=== PATIENT | female | born 1975 ===

== ENCOUNTER 2018-01-11 00:56 | Emergency (ER) | payer OTHER ==
[2018-01-11] MEDS ORDERED: Sodium Chloride 0.9% 1000 ML 1,000 ML IV STA (01:22)
[2018-01-11] MEDS ORDERED: Zofran 4 MG/2 ML VIAL IV ONE (01:22)
[2018-01-11] MEDS ORDERED: MORPHINE SULFATE 4 MG INJ IV ONE (01:22)
[2018-01-11] MEDS ORDERED: MORPHINE SULFATE 4 MG INJ ONE (01:26)
[2018-01-11] MEDS ORDERED: Zofran 4 MG/2 ML VIAL ONE (01:26)
[2018-01-11] MEDS ORDERED: Sodium Chloride 0.9% 1000 ML 1,000 ML ONE (01:26)
--- NOTE | 2018-01-11 01:29 | ERPHSYRPT ---
- History of Present Illness Time Seen by Provider: 01/11/18 01:24 Historian: patient Exam Limitations: no limitations Patient Subjective Stated Complaint: pt states she started having abd pain tonight around 2100 and has been nauseated and vomiting Triage Nursing Assessment: pt alert and oriented, asnwers questions approp. pt ambulatory with steady gait noted. respriations nonlabored with lungs cta. skin pink warm and dry. abd soft, tenderness noted to epigastric area. bowel sounds present x4 Physician History: This is a 42-year-old white female who states that she has had problems with the epigastric and right upper quadrant abdominal pain off and on for a year. She arrives with complaint of pain in the epigastric region which began around 9 :00 this is associated with several episodes of vomiting. Patient states that she had eaten or acute chicken prior to onset of her symptoms. Patient states that she initially presented at [facility] emergency room however she apparently had a long wait so decided to leaving, to [place] emergency room. Patient has no fevers. Patient states that she has had the abdominal pain for up to a year off and on she states she hasn't had a CT which showed a gallstone in the past she had a subsequent CT that was negative and did not show any gallstones she had a subsequent hiatus scan 3 months ago which she states was normal. Past medical history patient denies. Past surgical history ORIF of right leg. Social history positive for tobacco occasional alcohol use, patient denies illicit drug use. Timing/Duration: today (99:00 this evening) Activities at Onset: none Quality: cramping Abdominal Pain Onset Location: RUQ, epigastric Pain Radiation: other (back) Severity of Pain-Max: moderate Modifying Factors: Improves With: analgesics (patient tells the nurse sthe patient tells the nurse she took 800 mg of motrin prior to presentation), exercise, vomiting. Worsens With: antacids, breathing, coughing, defecating, eating, lying down, movement, palpation, rest, urinating, position, walking Associated Symptoms: back (pain radiates to her back), nausea, vomiting, No chest pain, No diaphoresis, No diarrhea, No fever/chills, No fatigue, No headache, No heartburn, No loss of appetite, No neck pain, No rash, No shortness of breath, No syncope Previous symptoms: same symptoms as today (patient states symptoms off and on for 1 year) Allergies/Adverse Reactions: Sulfa (Sulfonamide Antibiotics) Allergy (Verified 01/11/18 01:22) Rash Hx Tetanus, Diphtheria Vaccination/Date Given: No Hx Influenza Vaccination/Date Given: No Hx Pneumococcal Vaccination/Date Given: No Immunizations Up to Date: No - Review of Systems Constitutional: No Fever, No Chills Eyes: No Symptoms Ears, Nose, & Throat: No Symptoms Respiratory: No Cough, No Dyspnea Cardiac: No Chest Pain, No Edema, No Syncope Abdominal/Gastrointestinal: Abdominal Pain, Nausea, Vomiting, No Diarrhea, No Constipation, No Hematemesis, No Hematochezia, No Melena, No Dysphagia, No Appetite Changes Genitourinary Symptoms: No Dysuria Musculoskeletal: No Back Pain, No Neck Pain Skin: No Rash Neurological: No Dizziness, No Focal Weakness, No Sensory Changes Psychological: No Symptoms Endocrine: No Symptoms All Other Systems: Reviewed and Negative - Past Medical History Pertinent Past Medical History: No - Past Surgical History Past Surgical History: Yes Musculoskeletal: Orthopedic Surgery Other Surgical History: rt tib fib fx - Social History Smoking Status: Current every day smoker How long have you smoked: 20 Exposure to second hand smoke: Yes Drug Use: none Patient Lives Alone: No - Female History Hx Last Menstrual Period: depo shot Hx Now: No - Nursing Vital Signs Nursing Vital Signs: Initial Vital Signs Temperature 98.8 F 01/11/18 01:05 Pulse Rate 103 H 01/11/18 01:05 Respiratory Rate 18 01/11/18 01:05 Blood Pressure 130/90 01/11/18 01:05 O2 Sat by Pulse Oximetry 99 01/11/18 01:05 Pain Scale Pain Intensity 6 - Physical Exam General Appearance: no apparent distress, alert, other (Well-developed well- nourished white female, alert, oriented 3 in no acute distress) Eye Exam: PERRL/EOMI, eyes nml inspection Ears, Nose, Throat Exam: normal ENT inspection, pharynx normal, moist mucous membranes Neck Exam: normal inspection, non-tender, supple, full range of motion Respiratory Exam: normal breath sounds, lungs clear, No respiratory distress Cardiovascular Exam: regular rate/rhythm, normal heart sounds Gastrointestinal/Abdomen Exam: soft, normal bowel sounds, tenderness (mild right upper quadrant and epigastric tenderness with palpation negative rebound, negative masses) Back Exam: normal inspection, normal range of motion, No CVA tenderness, No vertebral tenderness Extremity Exam: normal inspection, normal range of motion, pelvis stable Neurologic Exam: alert, oriented x 3, cooperative, door slinger II-XII nml as tested, normal mood/affect, nml cerebellar function, sensation nml, No motor deficits Skin Exam: normal color, warm, dry SpO2 Interpretation: normal (99%) SpO2: 99 Oxygen Delivery: Room Air - Course Nursing assessment & vital signs reviewed: Yes Ordered Tests: Active Orders 24 hr Category Date Time Status IV Insertion STAT Care 01/11/18 01:22 Active AMYLASE Stat Lab 01/11/18 01:20 Completed CBC W DIFF Stat Lab 01/11/18 01:20 Completed CMP Stat Lab 01/11/18 01:20 Completed HCG QUALITATIVE,SERUM Stat Lab 01/11/18 01:20 Completed LIPASE Stat Lab 01/11/18 01:20 Completed UA W/RFX UR CULTURE Stat Lab 01/11/18 01:05 Completed Urine Triage Profile Stat Lab 01/11/18 01:05 Completed Medication Summary Generic Name Dose Route Start Last Admin Trade Name Freq PRN Reason Stop Dose Admin Sodium Chloride 1,000 mls @ 999 mls/hr 01/11/18 01:22 01/11/18 01:31 Sodium Chloride 0.9% 1000 Ml IV 01/11/18 02:22 999 mls/hr .Q1H1M STA Administration Promethazine HCl 25 mg 01/11/18 02:06 Phenergan 25 Mg PO 01/11/18 02:07 STAT ONE Discontinued Medications Generic Name Dose Route Start Last Admin Trade Name Freq PRN Reason Stop Dose Admin Sodium Chloride Confirm 01/11/18 01:26 Sodium Chloride 0.9% 1000 Ml Administered 01/11/18 01:27 Dose 1,000 mls @ ud .ROUTE .STK-MED ONE Morphine Sulfate 4 mg 01/11/18 01:22 01/11/18 01:30 Morphine Sulfate 4 Mg Inj IV 01/11/18 01:23 4 mg STAT ONE Administration Morphine Sulfate Confirm 01/11/18 01:26 Morphine Sulfate 4 Mg Inj Administered 01/11/18 01:27 Dose 4 mg .ROUTE .STK-MED ONE Ondansetron HCl 4 mg 01/11/18 01:22 01/11/18 01:30 Zofran 4 Mg/2 Ml Vial IV 01/11/18 01:23 4 mg STAT ONE Administration Ondansetron HCl Confirm 01/11/18 01:26 Zofran 4 Mg/2 Ml Vial Administered 01/11/18 01:27 Dose 4 mg .ROUTE .STK-MED ONE Lab/Rad Data: Laboratory Result Diagrams 01/11/18 01:20 01/11/18 01:20 Laboratory Results 01/11/18 01/11/18 01/11/18 Range/Units 01:20 01:20 01:20 WBC 7.5 (4.0-10.5) K/mm3 RBC 4.60 (4.1-5.4) M/mm3 Hgb 15.0 (12.0-16.0) gm/dl Hct 43.0 (35-47) % MCV 93.5 (78-100) fl MCH 32.6 H (26-32) pg MCHC 34.9 (32-36) g/dl RDW 13.0 (11.5-14.0) % Plt Count 244 (150-450) K/mm3 MPV 9.6 H (6-9.5) fl Gran % 55.5 (36.0-66.0) % Eos # (Auto) 0.05 (0-0.5) Absolute Lymphs (auto) 2.74 (1.0-4.6) Absolute Monos (auto) 0.50 (0.0-1.3) Lymphocytes % 36.8 (24.0-44.0) % Monocytes % 6.7 (0.0-12.0) % Eosinophils % 0.7 (0.00-5.0) % Basophils % 0.3 (0.0-0.4) % Absolute Granulocytes 4.14 (1.4-6.9) Basophils # 0.02 (0-0.4) Sodium 148 H (137-145) mmol/L Potassium 4.1 (3.5-5.1) mmol/L Chloride 112 H (98-107) mmol/L Carbon Dioxide 22 (22-30) mmol/L Anion Gap 17.6 H (5-15) MEQ/L BUN 13 (7-17) mg/dL Creatinine 0.88 (0.52-1.04) mg/dL Estimated GFR > 60.0 ML/MIN Glucose 93 (74-106) mg/dL Calcium 9.5 (8.4-10.2) mg/dL Total Bilirubin 0.20 (0.2-1.3) mg/dL AST 46 H (14-36) U/L ALT 87 H (0-35) U/L Alkaline Phosphatase 69 (38-126) U/L Serum Total Protein 8.4 H (6.3-8.2) g/dL Albumin 4.7 (3.5-5.0) g/dL Amylase 54 (30-110) U/L Lipase 111 (23-300) U/L Serum , Qual NEGATIVE (Negative) Ur Collection Type Urine Color (YELLOW) Urine Appearance (CLEAR) Urine pH (5-6) Ur Specific [place] (1.005-1.025) Urine Protein (Negative) Urine Ketones (NEGATIVE) Urine Blood (0-5) Derrick/ul Urine Nitrite (NEGATIVE) Urine Bilirubin (NEGATIVE) Urine Urobilinogen (0-1) mg/dL Ur Leukocyte Esterase (NEGATIVE) Urine Culture Reflexed (NO) Urine Glucose (NEGATIVE) mg/dL Urine Opiates Level (NEGATIVE) Ur Methadone (NEGATIVE) Urine Barbiturates (NEGATIVE) Ur Phencyclidine (PCP) (NEGATIVE) Urine Amphetamine (NEGATIVE) U Benzodiazepine Level (NEGATIVE) Urine Cocaine (NEGATIVE) Urine Marijuana (THC) (NEGATIVE) Specimen Received 01/11/18 01/11/18 Range/Units 01:05 01:05 WBC (4.0-10.5) K/mm3 RBC (4.1-5.4) M/mm3 Hgb (12.0-16.0) gm/dl Hct (35-47) % MCV (78-100) fl MCH (26-32) pg MCHC (32-36) g/dl RDW (11.5-14.0) % Plt Count (150-450) K/mm3 MPV (6-9.5) fl Gran % (36.0-66.0) % Eos # (Auto) (0-0.5) Absolute Lymphs (auto) (1.0-4.6) Absolute Monos (auto) (0.0-1.3) Lymphocytes % (24.0-44.0) % Monocytes % (0.0-12.0) % Eosinophils % (0.00-5.0) % Basophils % (0.0-0.4) % Absolute Granulocytes (1.4-6.9) Basophils # (0-0.4) Sodium (137-145) mmol/L Potassium (3.5-5.1) mmol/L Chloride (98-107) mmol/L Carbon Dioxide (22-30) mmol/L Anion Gap (5-15) MEQ/L BUN (7-17) mg/dL Creatinine (0.52-1.04) mg/dL Estimated GFR ML/MIN Glucose (74-106) mg/dL Calcium (8.4-10.2) mg/dL Total Bilirubin (0.2-1.3) mg/dL AST (14-36) U/L ALT (0-35) U/L Alkaline Phosphatase (38-126) U/L Serum Total Protein (6.3-8.2) g/dL Albumin (3.5-5.0) g/dL Amylase (30-110) U/L Lipase (23-300) U/L Serum , Qual (Negative) Ur Collection Type CLEAN CATCH Urine Color COLORLESS (YELLOW) Urine Appearance CLEAR (CLEAR) Urine pH 8.0 (5-6) Ur Specific [place] 1.000 (1.005-1.025) Urine Protein NEGATIVE (Negative) Urine Ketones NEGATIVE (NEGATIVE) Urine Blood NEGATIVE (0-5) Derrick/ul Urine Nitrite NEGATIVE (NEGATIVE) Urine Bilirubin NEGATIVE (NEGATIVE) Urine Urobilinogen NORMAL (0-1) mg/dL Ur Leukocyte Esterase NEGATIVE (NEGATIVE) Urine Culture Reflexed NO (NO) Urine Glucose NEGATIVE (NEGATIVE) mg/dL Urine Opiates Level NEGATIVE (NEGATIVE) Ur Methadone NEGATIVE (NEGATIVE) Urine Barbiturates NEGATIVE (NEGATIVE) Ur Phencyclidine (PCP) NEGATIVE (NEGATIVE) Urine Amphetamine NEGATIVE (NEGATIVE) U Benzodiazepine Level NEGATIVE (NEGATIVE) Urine Cocaine NEGATIVE (NEGATIVE) Urine Marijuana (THC) NEGATIVE (NEGATIVE) Specimen Received 01/11/18 0110 - Progress Progress: improved Progress Note: 01/11/18 01:30 This is a 42-year-old white female who states that she has had epigastric and right upper quadrant pain intermittently over the past year. Patient has had CT scan of her abdomen 2 on one of these she was noted to have gallstones but on a second once these were not noted she was also noted to have a normal HIDA scan approximately 3 months ago. She states this evening she ate chicken barbecue and then around 9:00 she began having epigastric pain and right upper quadrant pain radiating to her back associated with several episodes of vomiting. She states that she presented to [facility] emergency room however she was not seen by a physician apparently because it was busy and so she decided to leave [facility] and now presents to this emergency room. Patient does not appear to be in acute distress. She is mildly tender with palpation in the epigastric and right upper quadrant. Will go ahead and obtain appropriate laboratory studies give patient normal saline 1 L morphine 4 mg and Zofran 4 mg. I have run the patient on inspect I do not see that the patient has received any narcotics within the past year. 01/11/18 02:00 Patient is improved after receiving 1 L of normal saline and Zofran 4 mg IV and morphine 4 mg IV. Patient's labs patient's white count within normal limits of 7.5 hemoglobin 15 hematocrit 43.0 platelets 244 patient's urine drug screen is negative patient's chemistry sodium is elevated at 148 potassium 4.1 chloride elevated at 112 CO2 22 BUN is 13 creatinine 0.88 glucose 93 patient with mild elevation of liver and 50 times with AST of 46 and ALT of 87 he's had a mild increase in anion gap of 17 Urine interesting enough, specific gravity 1.000 indicating a dilute specimen, PH 8.0 blood and leukocyte esterase are both negative. Will plan to discharge patient. Indication epigastric pain. Patient has had a rather extensive workup with her family doctor. Will plan on having patient return home plenty of fluids Phenergan as needed for nausea vomiting or abdominal pain. - Departure Time of Disposition: 02:03 Departure Disposition: Home Clinical Impression: Epigastric pain Vomiting Qualifiers: Vomiting type: unspecified Vomiting Intractability: non-intractable Nausea presence: with nausea Qualified Code(s): R11.2 - Nausea with vomiting, unspecified Condition: Fair Critical Care Time: No Referrals: STEPHANIE ENG [Primary Care Provider] - Additional Instructions: Return home. Plenty of fluids, clear fluids only 24-48 hours if nausea vomiting or abdominal pain. Phenergan 25 mg one orally every 4-6 hours as needed for abdominal pain, nausea or vomiting. Follow-up with your family doctor. Return for acute distress or for severe symptoms. Prescriptions: Promethazine HCl 25 mg [Phenergan 25 mg] 25 mg PO Q4-6HPRN PRN #10 tablet PRN Reason: nausea, vomiting, abd pain.
[2018-01-11 01:30] LABS: BASOPHIL % 0.3 % (0.0-0.4); Basophil (Absolute #) 0.02 (0-0.4); Eosinophil % 0.7 % (0.00-5.0); Eosinophil (Absolute #) 0.05 (0-0.5); Granulocyte Absolute (ANC) 4.14 (1.4-6.9); Granulocytes % 55.5 % (36.0-66.0); Lymphocyte (Absolute #) 2.74 (1.0-4.6); Lymphocytes % 36.8 % (24.0-44.0); Mean Cell Volume 93.5 fl (78-100); Mean Corpuscular Hemoglobin 32.6 pg (26-32); Mean Corpuscular Hgb Concent. 34.9 g/dl (32-36); Mean Platelet Volume 9.6 fl (6-9.5); Monocytes % 6.7 % (0.0-12.0); Platelet Count 244 K/mm3 (150-450); White Blood Count 7.5 K/mm3 (4.0-10.5)
[2018-01-11 01:50] LABS: Amphetamine,Urine NEGATIVE (NEGATIVE); Barbiturate,Urine NEGATIVE (NEGATIVE); Benzodiazepine,Urine NEGATIVE (NEGATIVE); Cocaine,Urine NEGATIVE (NEGATIVE); Methadone,Urine NEGATIVE (NEGATIVE); Opiate,Urine NEGATIVE (NEGATIVE); PCP,Urine NEGATIVE (NEGATIVE); THC,Urine NEGATIVE (NEGATIVE)
[2018-01-11 01:50] LABS: ALBUMIN 4.7 g/dL (3.5-5.0); ALKALINE PHOSPHATASE 69 U/L (38-126); AMYLASE 54 U/L (30-110); ANION GAP 17.6 MEQ/L (5-15); BLOOD UREA NITROGEN 13 mg/dL (7-17); CHLORIDE 112 mmol/L (98-107); Calcium 9.5 mg/dL (8.4-10.2); Carbon Dioxide 22 mmol/L (22-30); Creatinine 1 0.88 mg/dL (0.52-1.04); Glucose 93 mg/dL (74-106); LIPASE 111 U/L (23-300); Potassium 4.1 mmol/L (3.5-5.1); SGOT/AST 46 U/L (14-36); SGPT/ALT 87 U/L (0-35); SODIUM 148 mmol/L (137-145); Total Protein 8.4 g/dL (6.3-8.2)
[2018-01-11 01:53] LABS: Appearance CLEAR (CLEAR); Bilirubin NEGATIVE (NEGATIVE); Blood NEGATIVE Ery/ul (0-5); Glucose NEGATIVE (NEGATIVE); Ketones NEGATIVE (NEGATIVE); Leukocyte Esterase NEGATIVE (NEGATIVE); Nitrite NEGATIVE (NEGATIVE); Protein,Urine Dip NEGATIVE (Negative); Urobilinogen NORMAL mg/dL (0-1)
[2018-01-11] MEDS ORDERED: PHENERGAN 25 MG PO ONE (02:06)
[2018-01-11] MEDS ORDERED: PHENERGAN 25 MG ONE (02:09)
[2018-01-11 02:22] VITALS: BP 132/83; PULSE 97; O2SAT 98
== END 2018-01-11 02:21 | disposition home or self-care (01) ==
LOC: ED 00:56
DX: R10.13 Epigastric pain (principal); R11.2 Nausea with vomiting, unspecified; M54.9 Dorsalgia, unspecified
CPT/HCPCS: 36000; 36415; 80053; 80307; 81002; 82150; 83690; 84703; 85025; 96374; 96375; 99284; J2270; J2405; A9270-GY